=== PATIENT | male | born 1965 | race Caucasian/White ===

== ENCOUNTER → 2021-04-30 08:39 | Outpatient (CLI) | payer OTHER, SELFPAY ==
--- NOTE | ~2021-04-30 | CT_ITS ---
EXAMINATION:CT diagnostic chest wo con DATE: 04/30/2021 08:56 INDICATION: Pulmonary nodule. TECHNIQUE: Computed tomography (CT) of the chest was performed without intravenous contrast. Automate d exposure control and iterative reconstruction technique were employed. The dose-length product (DLP ) was 97.08 mGy-cm. COMPARISON: Chest CT 12/28/2015 FINDINGS: There is mild scarring at the lung apices. There are nodules at the lung apices measuring u p to 4 mm. There is mild atelectasis in right lower lobe. No pleural effusion. The heart size is norm al. No pericardial effusion. There are old healed right rib fractures. There is severe mid thoracic s pondylosis. IMPRESSION: 1. Stable mild scarring and stable small nodules at the lung apices, likely benign. Reviewed, dictated and finalized at location A. IMPRESSION: 1. Stable mild scarring and stable small nodules at the lung apices, likely phil ign.
== END ==
PROVIDERS: PCP Family Medicine; Visit Provider Family Medicine
DX: R91.8 Other nonspecific abnormal finding of lung field (principal)
CPT/HCPCS: 71250